=== PATIENT | male | born 2000 | race Caucasian/White ===

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

== ENCOUNTER 2021-12-01 15:09 | Outpatient (CLI) | payer OTHER | END 2021-12-01 15:10 | disposition home or self-care (01) | LOC: NAV RAD 15:09 | PROVIDERS: ATTEND Family Medicine | DX: M54.50 Low back pain, unspecified (principal); M48.56XD Collapsed vertebra, not elsewhere classified, lumbar region, subsequent encounter for fracture with routine healing; M46.06 Spinal enthesopathy, lumbar region | CPT/HCPCS: 72100 ==

== ENCOUNTER 2022-02-25 16:40 | Emergency (ER) | payer OTHER ==
[2022-02-25] MEDS ORDERED: Loratadine 10 MG TAB PO SCH (17:30)
[2022-02-25] MEDS ORDERED: Fluticasone Propionate Nasal Spray 16 gm Bottle NASAL SCH (17:30)
== END 2022-02-25 18:20 | disposition home or self-care (01) ==
LOC: NAV ERS 16:40
DX: J01.90 Acute sinusitis, unspecified (principal); J02.9 Acute pharyngitis, unspecified
CPT/HCPCS: 87081; 87430; 87804; 99283